=== PATIENT | female | born 1980 | race African-American/Black ===

== ENCOUNTER 2025-01-25 21:12 | Emergency (ER) | payer OTHER, SELFPAY ==
[2025-01-25 21:28] VITALS: BP 162/108; PULSE 89; RESP 16; TEMP 36.4; O2SAT 98; BMI 38.8
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
--- NOTE | 2025-01-26 00:20 | PC.NURSE ---
Lonnie garcia by in [facility], cleared for [facility] home.
[2025-01-26 00:36] VITALS: BP 162/108; PULSE 89; RESP 16; TEMP 36.4; O2SAT 98
== END 2025-01-26 00:36 | disposition home or self-care (01) ==
LOC: HO.ED 01-26 00:22
PROVIDERS: Emergency Provider Emergency Medicine
DX: M54.6 Pain in thoracic spine (principal); M79.10 Myalgia, unspecified site
CPT/HCPCS: 99282; 99283